=== PATIENT | male | born 1955 | race Caucasian/White ===

== ENCOUNTER 2023-09-06 08:11 | Outpatient (CLI) | payer MEDICARE, BC, SELFPAY | END 2023-09-06 08:12 | disposition home or self-care (01) | PROVIDERS: PCP Internal Medicine; Visit Provider Internal Medicine | DX: Z13.228 Encounter for screening for other metabolic disorders (principal); Z13.220 Encounter for screening for lipoid disorders; Z12.5 Encounter for screening for malignant neoplasm of prostate | CPT/HCPCS: 80053; 80061; G0103 ==

== ENCOUNTER 2023-09-20 07:13 | Outpatient (CLI) | payer MEDICARE, BC, SELFPAY ==
--- NOTE | 2023-09-20 09:01 | W.ANESCHARGE ---
Anesthesia Charges Start Date/Time Anesthesia Start Date: 09/20/23 Anesthesia Start Time: 08:20 Stop Date/Time Anesthesia Stop Date: 09/20/23 Anesthesia Stop Time: 09:00
--- NOTE | 2023-09-20 09:36 | W.ANESCHARGE ---
Anesthesia Charges Start Date/Time Anesthesia Start Date: 09/20/23 Anesthesia Start Time: 08:20 Stop Date/Time Anesthesia Stop Date: 09/20/23 Anesthesia Stop Time: 09:00
== END 2023-09-20 07:14 | disposition home or self-care (01) ==
LOC: OP CLINIC 07:15
PROVIDERS: PCP Internal Medicine; Visit Provider Surgery
DX: Z12.11 Encounter for screening for malignant neoplasm of colon (principal); K63.5 Polyp of colon; K57.30 Diverticulosis of large intestine without perforation or abscess without bleeding; Z86.010 Personal history of colon polyps
CPT/HCPCS: 00811; 45385; 88305; J2704